=== PATIENT | male | born 1980 | race Caucasian/White ===

== ENCOUNTER 2018-05-13 06:56 | Emergency (ER) | payer MEDICAID ==
--- NOTE | 2018-05-13 07:29 | Emergency Department Record ---
History of Present Illness - General Chief complaint: Eye Problem Stated complaint: EYE INFECTION Time Seen by Provider: 05/13/18 07:09 Source: Patient Mode of Arrival: Ambulatory Limitations: No limitations Travel/Exposure to [facility] Within 21 Days of Symptoms: No - History of Present Illness Initial comments: The patient is here due to L eye irritation for 12 hours. He does wear contacts but denies sleeping in them. The patient denies any blurred vision or possibility of any FB in the L eye. He also denies any recent cold or runny nose. There has been no trauma but the L eye is mildly light sensitive. chief complaint: Eye pain Onset/Timin -: Hour(s) Onset Description: Sudden Location: Left eye Place: Work If Injury: None If Pain, Quality: Burning, Other Consistency: Constant Context: Contact lens use Treatments Prior to Arrival: Irrigated eye - Related Data Visual acuity (L) = 20/: 20 Visual acuity (R) = 20/: 20 With correction: Yes Previous Rx's Medication Instructions Recorded Moxifloxacin HCl [Vigamox] 3 ml OP DAILY #1 drops 05/13/18 Allergies Allergy/AdvReac Type Severity Reaction Status Date / Time No Known Drug Allergies Allergy Verified 05/13/18 07:06 Travel Screening - Travel/Exposure Within Last 30 Days Have you traveled within the last 30 days?: No - Travel/Exposure Within Last Year Have you traveled outside the [place] in the last year?: No - Additonal Travel Details Have you been exposed to anyone with a communicable illness?: No - Travel Symptoms Symptom Screening: None Review of Systems Constitutional: Denies: Chills, Fever Eyes: Reports: Eye pain. Denies: Eye discharge, Photophobia, Vision change ENT: Denies: Congestion Respiratory: Denies: Cough Past Medical History - SOCIAL HISTORY Smoking Status: Never smoker Alcohol Use: Rare Drug Use: None - RESPIRATORY Hx Respiratory Disorders: Yes Hx Asthma: Yes - CARDIOVASCULAR Hx Cardio Disorders: No - NEURO Hx Neuro Disorders: No - GI Hx GI Disorders: No - Hx Genitourinary Disorders: No - ENDOCRINE Hx Endocrine Disorders: No - MUSCULOSKELETAL Hx Musculoskeletal Disorders: No - PSYCH Hx Psych Problems: No - HEMATOLOGY/ONCOLOGY Hx Hematology/Oncology Disorders: No Family Medical History Any Significant Family History?: No Physical Exam - General General Appearance: Alert, Oriented x3, Cooperative, No acute distress - Head Head exam: Atraumatic, Normocephalic, Normal inspection - Eye Eye exam: PERRL, Conjunctival injection (mild L eye.), EOMI, Other (The L cornea is neg for any flourescein uptake and the anterior chamber is clear on Slit Lamp examination. There is no FB on lid eversion. ). negative: Normal appearance, Periorbital swelling, Periorbital tenderness Visual acuity (L) = 20/: 20 Visual acuity (R) = 20/: 20 With correction: Yes Course Vital Signs 05/13/18 07:00 Temperature 98.6 F Pulse Rate 97 H Respiratory 16 Rate Blood Pressure 116/95 Pulse Ox 95 - Reevaluation(s) Reevaluation #1: I did explain to the patient the need to keep the contacts out for a week. He is to see his eye doctor if not better by Wednesday and to return to the ER for any worsening symptoms. 05/13/18 07:32 Disposition Disposition: Discharge Clinical Impression: Conjunctivitis Qualifiers: Conjunctivitis type: acute Acute conjunctivitis type: unspecified Laterality: left Qualified Code(s): H10.32 - Unspecified acute conjunctivitis, left eye Disposition: Home, Self-Care Condition: (2) Stable Instructions: Conjunctivitis (ED) Additional Instructions: Please use the eye drops as directed and keep the contacts out for a week. Please see your eye doctor if not better by Wednesday. Return to the ER for any worsening symptoms. Prescriptions: Moxifloxacin HCl [Vigamox] 3 ml OP DAILY #1 drops Forms: Patient Portal Access Time of Disposition: :29 Quality - Quality Measures Quality Measures: N/A - Blood Pressure Screening View Details: Yes Does Patient Have Any of the Following: No Blood Pressure Classification: Pre-Hypertensive BP Reading Systolic Measurement: 116 Diastolic Measurement: 88 Screening for High Blood Pressure: < Pre-Hypertensive BP, F/U Documented > [ [id number]] Pre-Hypertensive Follow-up Interventions: Referral to alternative/primary care provider.
[2018-05-13] MEDS: PROPARACAINE HCL OPTH 15ML BTL OPTH ONE ×2 (07:37)
== END 2018-05-13 07:41 | disposition home or self-care (01) ==
LOC: ER 06:56
DX: H10.32 Unspecified acute conjunctivitis, left eye (principal); Y99.0 Civilian activity done for income or pay
CPT/HCPCS: 99282